=== PATIENT | female | born 1990 | race Caucasian/White ===

== ENCOUNTER 2017-03-31 07:58 | Inpatient (IN) | payer OTHER ==
[2017-04-02] MEDS ORDERED: SERT50TA PO (09:39)
[2017-04-02] MEDS ORDERED: GABA-534 PO (09:39)
[2017-04-02] MEDS ORDERED: BUSP15TA3 PO (09:39)
[2017-04-02] MEDS ORDERED: CLON0.1T PO (09:39)
== END 2017-04-01 00:24 | disposition left against medical advice (07) | DRG 894 ==
LOC: SRC 23:25
PROVIDERS: ADMIT Internal Medicine; ATTEND Internal Medicine
DX: F19.239 Other psychoactive substance dependence with withdrawal, unspecified (principal); Z75.3 Unavailability and inaccessibility of health-care facilities

== ENCOUNTER 2017-03-31 19:35 | Emergency (ER) | payer OTHER ==
[~2017-03-31] VITALS: Ht 165.1 cm; Wt 59.0 kg
--- NOTE | 2017-03-31 19:57 | NUR ---
DR. WALKER AT BEDSIDE FOR EVAL.
[2017-03-31 20:33] LABS: BASOPHILS # (AUTO) 0.1 K/uL (0.0-8.0); BASOPHILS % (AUTO) 0.5 % (0.0-2.0); EOSINOPHILS # (AUTO) 0.5 K/uL (0.0-0.7); EOSINOPHILS % (AUTO) 5.2 % (0.0-7.0); HEMATOCRIT 37.7 % (37-47); HEMOGLOBIN 12.7 G/DL (12.0-16.0); LYMPHOCYTES # (AUTO) 3.7 K/UL (0.8-4.8); LYMPHOCYTES % (AUTO) 36.5 % (20.5-51.5); MEAN CORPUSCULAR HEMOGLOBIN 29.9 UUG (27.0-31.0); MEAN CORPUSCULAR HGB CONC 34 g/dL (32.0-37.0); MEAN CORPUSCULAR VOLUME 88.9 FL (81.0-99.0); MONOCYTES # (AUTO) 0.5 K/UL (0.1-1.30); MONOCYTES % (AUTO) 5.2 % (0.0-11.0); NEUTROPHILS # (AUTO) 5.3 K/UL (1.8-8.9); NEUTROPHILS % (AUTO) 52.6 % (38.5-71.5); PLATELET COUNT (AUTO) 254 K/UL (150-450); RED BLOOD CELL COUNT(AUTO) 4.24 MIL/UL (4.2-5.4); WHITE BLOOD COUNT (AUTO) 10.1 K/UL (4.0-11.2)
[2017-03-31 20:38] LABS: CARBON DIOXIDE 28 mmol/L (21-32); CHLORIDE 101 mmol/L (98-107); CREATININE 0.8 mg/dL (0.6-1.3); GLUCOSE 96 mg/dL (74-106); POTASSIUM 3.8 mmol/L (3.5-5.1); UREA NITROGEN, BLOOD 10 mg/dL (7-18)
[2017-03-31 20:44] LABS: ALANINE AMINOTRANSFERASE 23 U/L (14-59); ALKALINE PHOSPHATASE 42 U/L (50-136); ASPARTATE AMINOTRANSFERASE 16 U/L (15-37); BILIRUBIN,DIRECT 0.1 mg/dL (0.0-0.2); BILIRUBIN,TOTAL 0.3 mg/dL (0.2-1.0); TOTAL PROTEIN, SERUM 7.4 g/dL (6.4-8.2)
[2017-03-31 20:46] LABS: ACETAMINOPHEN < 2.0 ug/mL (10-30)
[2017-03-31 20:58] LABS: ETHANOL 280 MG/DL (0-0)
--- NOTE | 2017-03-31 22:30 | NUR ---
PATIENT IN ROOM AWAKE. AT TIMES ARUGING WITH [facility] STAFF AND ER STAFF MEMBER. PATIENT WAS OFFERED MEAL BUT PATIENT REFUSED. NO DISTRESS NOTED
--- NOTE | 2017-03-31 22:40 | NUR ---
СЕРГЕЙ STAFF MEMBER IN ROOM SPEAKING WITH PATIENT
[2017-03-31 22:54] VITALS: BP 120/75
== END 2017-03-31 23:20 | disposition home or self-care (01) ==
LOC: ER 19:37
DX: F19.10 Other psychoactive substance abuse, uncomplicated (principal); F10.129 Alcohol abuse with intoxication, unspecified
CPT/HCPCS: 36415; 70030-TC; 84703; 85025; 93005; A4663; G0480; G0480-TC

== ENCOUNTER 2017-04-01 02:24 | Inpatient (IN) | payer OTHER ==
[~2017-04-01] VITALS: Ht 157.5 cm; Wt 59.0 kg
--- NOTE | 2017-04-01 02:36 | NUR ---
PATIENT BIB [employer] IN [facility], PLACED ON 5150 FOR SI. PT WAS SEEN IN ER AROUND 1999 ON 03/31/17, WAS MEDICALLY CLEARED. PATIENT CAME INITALLY TO HOSPITAL SEEKING CARE AT [facility]. AFTER PATIENT WAS MEDICALLY CLEARED HAND OFF WAS GIVEN TO [facility] INTAKE. AT SOME POINT AT [facility], PATIENT WAS REFUSING CARE AND LEAVING THE HOSPITAL, ATTEMPTING TO RUN OUT ONTO THE STREETS. [employer] WAS CALLED, AND PATIENT WAS PLACED ON HOLD BY [employer]. PATIENT VSS UPON ARRIVAL TO ER, SLURRED SPEECH NOTED. NO ACUTE DISTRESS WILL MONITOR.
--- NOTE | 2017-04-01 02:40 | NUR ---
PATIENT PLACED ON 5150 HOLD BY [employer] ON 04/01/17 @ 0229. ORIGINAL HOLD IN CHART.
--- NOTE | 2017-04-01 02:52 | NUR ---
PATIENT ASLEEP AT THIS TIME, BREATHING IS EVEN AND UNLABORED.
[2017-04-01 03:50] LABS: ALANINE AMINOTRANSFERASE 23 U/L (14-59); ALKALINE PHOSPHATASE 43 U/L (50-136); ASPARTATE AMINOTRANSFERASE 18 U/L (15-37); BILIRUBIN,DIRECT 0.1 mg/dL (0.0-0.2); BILIRUBIN,TOTAL 0.2 mg/dL (0.2-1.0); CARBON DIOXIDE 31 mmol/L (21-32); CHLORIDE 101 mmol/L (98-107); CREATININE 0.8 mg/dL (0.6-1.3); GLUCOSE 88 mg/dL (74-106); POTASSIUM 3.9 mmol/L (3.5-5.1); TOTAL PROTEIN, SERUM 7.4 g/dL (6.4-8.2); UREA NITROGEN, BLOOD 10 mg/dL (7-18)
[2017-04-01 03:51] LABS: ACETAMINOPHEN < 2.0 ug/mL (10-30)
[2017-04-01 03:56] LABS: BASOPHILS % (AUTO) 0.4 % (0.0-2.0); EOSINOPHILS # (AUTO) 0.2 K/uL (0.0-0.7); EOSINOPHILS % (AUTO) 2.1 % (0.0-7.0); HEMATOCRIT 38.5 % (37-47); HEMOGLOBIN 12.9 G/DL (12.0-16.0); LYMPHOCYTES # (AUTO) 2.4 K/UL (0.8-4.8); LYMPHOCYTES % (AUTO) 28.6 % (20.5-51.5); MEAN CORPUSCULAR HEMOGLOBIN 29.6 UUG (27.0-31.0); MEAN CORPUSCULAR HGB CONC 34 g/dL (32.0-37.0); MEAN CORPUSCULAR VOLUME 88.5 FL (81.0-99.0); MONOCYTES # (AUTO) 0.5 K/UL (0.1-1.30); MONOCYTES % (AUTO) 5.4 % (0.0-11.0); NEUTROPHILS # (AUTO) 5.4 K/UL (1.8-8.9); NEUTROPHILS % (AUTO) 63.5 % (38.5-71.5); PLATELET COUNT (AUTO) 258 K/UL (150-450); RED BLOOD CELL COUNT(AUTO) 4.35 MIL/UL (4.2-5.4); WHITE BLOOD COUNT (AUTO) 8.5 K/UL (4.0-11.2)
[2017-04-01 03:57] LABS: ETHANOL 202 MG/DL (0-0)
--- NOTE | 2017-04-01 05:15 | NUR ---
ASSISTED PATIENT TO BATHROOM, URINE SAMPLE OBTAINED. AMBULATES WITH UNSTEADY GAIT. REMAINS WITH SLURRED SPEECH AT THIS TIME.
[2017-04-01 05:52] LABS: *BILIRUBIN,URIN NEGATIVE (NEGATIVE); *BLOOD, URINE NEGATIVE (NEGATIVE); *CLARITY,URINE CLEAR (CLEAR); *COLOR,URINE STRAW (YELLOW); *KETONES,URINE NEGATIVE (NEGATIVE); *PROTEIN,URINE NEGATIVE (NEGATIVE); *UROBILINOGEN,URINE 0.2 E.U./dl (NORMAL); LEUKOCYTE ESTERASE ,URINE NEGATIVE (NEGATIVE); NITRITE, URINE NEGATIVE (NEGATIVE); UGLUCOSE NEGATIVE (NEGATIVE)
[2017-04-01 06:02] LABS: BACTERIA,URINE FEW /HPF (NONE SEEN); RBC,URINE 0-3 /HPF (0-3); SQUAMOUS EPITHELIAL CELL,UR FEW /HPF (NONE SEEN); WBC,URINE 0-3 /HPF (0-3)
[2017-04-01 06:17] LABS: *AMPHETAMINE, URINE NEGATIVE (NEGATIVE); *BARBITURATE, URINE NEGATIVE (NEGATIVE); *CANNABINOID, URINE NEGATIVE (NEGATIVE); *COCCAINE, URINE NEGATIVE (NEGATIVE); *OPIATE, URINE NEGATIVE (NEGATIVE); *PHENCYCLIDINE SCREEN,URINE NEGATIVE (NEGATIVE)
--- NOTE | 2017-04-01 06:50 | NUR ---
PATIENT ASLEEP AT THIS TIME, 1:1 SITTER AT BEDSIDE.
--- NOTE | 2017-04-01 07:04 | NUR ---
SHELLI ALBERTS NOTIFIED FOR EVALUATION OF PATIENT.
--- NOTE | 2017-04-01 07:05 | NUR ---
ETA OF SHELLI ALBERTS IS 1HR
--- NOTE | 2017-04-01 07:30 | NUR ---
Report received.Pt remains asleep.Sitter at bedside.Appears comfortable.No s/s of distress.VS WNL. Will continue to monitor.
--- NOTE | 2017-04-01 08:30 | NUR ---
Seen,examined by Oriln Lewis,crisis evaluater.
--- NOTE | 2017-04-01 08:31 | NUR ---
Pt is going to be discharge to [facility].Report given to [facility] coordinator.
--- NOTE | 2017-04-01 09:40 | NUR ---
Admission Note VS: BP: 112/82 HR:92, SpO2: 99% RA, RR: 16, Temp: 98.6 Pain:6/10 (body aches) Height:5'2" Weight: 132 LB Allergies: MAMI Pt is a 26 y/o female admitted to [facility] on 04/01/17 at 0940. Pt is under the care of Dr. Wilson for alcohol dependence. PT also reports occasional use of Valium and Librium. Pt denies suicidal and homicidal ideations at this time. Pt denies Chest Pain and SOB. Pt did not bring any medications with her and denies taking any medications at home. PT reports being homeless at this time. Upon assessment pt's skin pt presents with multiple scrapes on her knees and knuckles. CIWA 20 upon admission, has been notified and pt received Valium 20mg and Motrin 600mg for body aches. NKA, A/Ox4 and able to answer questions necessary for the admission process. Pt is Full Code. VS WNL, Regular Diet. Pt reports Hx of anxiety, depression and Bipolar disorder. Denies any Hx of family substance abuse. Pt reports having multiple seizures in the past related to withdrawals most recent being in December of 2015. Pt denies having a PCP. Breathing is even and unlabored, SpO2 is 99% on RA. Pt ambulates with unsteady gait, pt is on a 1:1 for safety reasons until farther evaluation. Pt reports regular daily BM. LBM on 04/01/17. Pt reports smoking 1/[address] Wilson has been notified, pt has been placed on a 5 day Valium taper set to begin tonight, 2100. Urine has been collected for UDS. All needs have been met. Pt has been oriented to the room and the unit. All safety measures in place per hospital policy. Bed in lowest position, side rails up x2 and padded, call-light within reach. Will continue to monitor. Substance Abuse: Alcohol: 2-3 bottles of wine, 6 pack of beer and several shots of vodka daily. Pt reports drink 20 bottles of hand change control analyst during the last 4 days. Last drink: 03/31/17, pt reports drinking at least 2 bottles of wine prior to being admitted to the ER.
[2017-04-01 10:00] VITALS: BP 112/73
[2017-04-01] MEDS ORDERED: DICYCLOMINE HCL 20 MG TABLET PO PRN (10:30)
[2017-04-01] MEDS ORDERED: MAGNESIUM HYDROXIDE 30 ML LIQUID UDC PO PRN (10:30)
[2017-04-01] MEDS ORDERED: LORAZEPAM 2 MG/1 ML VIAL IM PRN (10:30)
[2017-04-01] MEDS ORDERED: LORAZEPAM 1 MG TABLET PO PRN ×2 (10:30)
[2017-04-01] MEDS ORDERED: MIRALAX 17 GM POWD.PACK PO PRN (10:30)
[2017-04-01] MEDS ORDERED: LOPERAMIDE HCL 2 MG CAPSULE PO PRN ×2 (10:30)
[2017-04-01] MEDS ORDERED: diphenhydrAMINE 50 MG CAPSULE PO PRN (10:30)
[2017-04-01] MEDS ORDERED: MAG HYDROX/AL HYDROX/SIMETH 30 ML LIQUID UDC PO PRN (10:30)
[2017-04-01 10:42] LABS: *URINE HCG, QUAL NEGATIVE (NEGATIVE)
[2017-04-01] MEDS ORDERED: THIAMINE HCL 200 MG/2 ML VIAL IM ONE ×2 (11:00→14:00)
[2017-04-01 12:00] VITALS: BP 125/65
[2017-04-01] MEDS ORDERED: DIAZEPAM 10 MG TABLET PO PRN ×2 (13:00)
[2017-04-01] MEDS ORDERED: DIAZEPAM 5 MG TABLET PO PRN (13:00)
[2017-04-01] MEDS: GABAPENTIN 300 MG CAPSULE PO SCH (14:34)
[2017-04-01] MEDS: IBUPROFEN 600 MG TABLET PO PRN (15:25)
--- NOTE | 2017-04-01 15:25 | NUR ---
PRN Medications Administered PRN Valium and Motrin for CIWA 20 and Pain of 6/10. Will re-asses. HAS BEEN NOTIFIED
--- NOTE | 2017-04-01 15:55 | NUR ---
Medication Re-assessment CIWA 12 upon re-assessment. Pt reports Pain of 3/10 at this time. Medications were effective .
[2017-04-01 16:00] VITALS: BP 128/78
--- NOTE | 2017-04-01 19:22 | NUR ---
End of Shift Endorsed PT to nightshift nurse. Pt is a 26 y/o female admitted to [facility] on 04/01/17 at 0940. Pt is under the care of Dr. Wilson for alcohol dependence. PT also reports occasional use of Valium and Librium. Pt denies suicidal and homicidal ideations at this time. Pt denies Chest Pain and SOB. Pt did not bring any medications with her and denies taking any medications at home. PT reports being homeless at this time. Upon assessment pt's skin pt presents with multiple scrapes on her knees and knuckles. CIWA 20 upon admission, has been notified and pt received Valium 20mg and Motrin 600mg for body aches. NKA, A/Ox4 and able to answer questions necessary for the admission process. Pt is Full Code. VS WNL, Regular Diet. Pt reports Hx of anxiety, depression and Bipolar disorder. Denies any Hx of family substance abuse. Pt reports having multiple seizures in the past related to withdrawals most recent being in December of 2015. Pt denies having a PCP. Breathing is even and unlabored, SpO2 is 99% on RA. Pt ambulates with unsteady gait, pt is on a 1:1 for safety reasons until farther evaluation. Pt reports regular daily BM. LBM on 04/01/17. Pt reports smoking 1/[address] Wilson has been notified, pt has been placed on a 5 day Valium taper set to begin tonight, 2100. Urine has been collected for UDS. All needs have been met. Pt has been oriented to the room and the unit. All safety measures in place per hospital policy. Bed in lowest position, side rails up x2 and padded, call-light within reach. Will continue to monitor.
[2017-04-01 20:00] VITALS: BP 108/72
--- NOTE | 2017-04-01 20:00 | NUR ---
Start of Shift Pt is a 26 year old female admitted for ETOH dependence, placed on 5 day Valium taper. Pt reports drinking 2-3 bottles of wine and 6 pack of beer and several shots of vodka daily. Pt reported consuming 20 bottles of hand clearance cutter during the past 4 days. PMH: Anxiety, Depression and Bipolar D/O. NKA, fall/seizure precautions and full code. At time of assessment, pt reports feeling anxious/irritable and uneasy, reports feeling aches and chills throughout body, fatigue, sensitivity to light, nausea, skin clammy, denies SI. Medications due, Sitter at bedside for safety. Safety measures in place, call light within reach side rails up x2, bed locked and in low position. Will continue to monitor.
[2017-04-01] MEDS: DIAZEPAM 10 MG TABLET PO SCH ×2 (20:10→23:23)
[2017-04-01] MEDS ORDERED: GABAPENTIN 300 MG CAPSULE PO SCH (21:00)
[2017-04-01] MEDS: METHOCARBAMOL 750 MG TABLET PO PRN (21:14)
--- NOTE | 2017-04-01 21:14 | NUR ---
PRN Administration Pt reports body aches, rated 10/10. Robaxin 750mg PRN administered. Safety measures in place, will continue to monitor.
--- NOTE | 2017-04-01 22:24 | NUR ---
PRN Reassessment Pt rates body aches, 5/10. Needs met, safety measures in place, sitter at bedside, will continue to monitor.
[2017-04-02] VITALS: BP 111/71
[2017-04-02 04:00] VITALS: BP 106/70
--- NOTE | 2017-04-02 04:00 | NUR ---
Vital Signs BP 106/70, pulse 76, resp 14, SpO2 97% room air, temp 97.8 CIWA deferred d/t pt sleeping - to assess while pt is awake as ordered. Safety measures in place. Will continue to monitor.
--- NOTE | 2017-04-02 07:00 | NUR ---
End of Shift Pt is a 26 year old female admitted for ETOH dependence, placed on 5 day Valium taper. Pt reports drinking 2-3 bottles of wine and 6 pack of beer and several shots of vodka daily. Pt reported consuming 20 bottles of hand manager call during the past 4 days. PMH: Anxiety, Depression and Bipolar D/O. NKA, fall/seizure precautions and full code. During shift, pt reported feeling anxious/irritable and uneasy, reported feeling aches and chills throughout body, fatigue, sensitivity to light, nausea, skin clammy, denies SI scheduled taper medications administered, along with Robaxin 750mg PRN, CIWA 13 at 0000. Pt remains on 1:1 for safety. Pt slept for 6 hours, intake of 1547 ml PO, voids x1 and stool x0. Safety measures in place, call light within reach, side rails up x2, bed locked and in low position. Endorsed to day shift nurse.
--- NOTE | 2017-04-02 07:45 | NUR ---
START OF SHIFT Rcvd endorsement from ongoing nurse, client is in room, a/o x4, she presents with irritable mood and flat affect. She reports restless legs and stated "I feel horrible, I am sweating, my anxiety is over the roof." Client denies any N/V/D or SI/HI. Encouraged client to increase fluid intake to facilitate detox. Encourage client to attend group therapy for skills to maintain sobriety. Client is on a 1:1 for safety precautions. Client is a 26 yo female admitted for withdrawal from alcohol. She is on last of 5 day Diazepam taper, first dose today @ 0900. She reports NKA, full code, regular diet. Bilateral knees with superficial abrasions, no tx ordered, client denies any discomfort at site. PRN Robaxin for muscle pain, noted effective. Client slept 6 hrs. Client reports history of withdrawal-induced seizure. She is on seizure precautions. Call light within reach. Side rails up x2/padded, bed locked and in low position.
[2017-04-02 08:00] VITALS: BP 119/87
[2017-04-02 08:08] LABS: HEPATITIS B SURFACE AG Negative (Negative)
[2017-04-02] MEDS: DIAZEPAM 10 MG TABLET PO SCH ×4 (08:12→20:15)
[2017-04-02] MEDS: THIAMINE HCL 100 MG TABLET PO SCH (08:12)
[2017-04-02] MEDS: FOLIC ACID 1 MG TABLET PO SCH (08:12)
[2017-04-02] MEDS: ONDANSETRON ODT 4 MG TAB.RAPDIS SL PRN (08:13)
[2017-04-02] MEDS: DOCUSATE SODIUM 250 MG CAPSULE PO SCH (08:13)
[2017-04-02] MEDS: METHOCARBAMOL 750 MG TABLET PO PRN (08:13)
[2017-04-02] MEDS: MULTIVITAMINS,THERAPEUTIC TABLET PO SCH (08:13)
[2017-04-02] MEDS: GABAPENTIN 300 MG CAPSULE PO SCH ×3 (08:13→16:10)
--- NOTE | 2017-04-02 08:13 | NUR ---
PRN Zofran 4mg, Bentyl 20mg, Robaxin 750mg Client with intermittent nausea, no emesis, abdominal cramps and generalized muscle pain. Above medications administered PO. Will continue to monitor. Call light within reach. Sitter at bedside promoting safety.
--- NOTE | 2017-04-02 08:16 | NUR ---
TB test administered to L forearm. Client tolerated well.
[2017-04-02] MEDS ORDERED: TUBERCULIN,PURIF.PROT.DERIV. 5 TU/0.1 ML TEST ID ONE (09:00)
--- NOTE | 2017-04-02 09:13 | NUR ---
Reassessment PRN Zofran 4mg, Bentyl 20mg, Robaxin 750mg Client reports relief from nausea and abdominal cramps, but not from generalized muscle pain, which continues to be an 8/10. Client declined Motrin or Tylenol at this time, she wants to go to the patio and smoke a cigarette. Will continue to monitor.
--- NOTE | 2017-04-02 09:20 | NUR ---
Client reports following home meds Zolof 100mg daily Gabapentin 900mg TID Clonidine 0.1mg Q6HPRN Buspar [address] T[address] Wilson notified.
[2017-04-02] MEDS ORDERED: BUSP15TA3 PO (09:39)
[2017-04-02] MEDS ORDERED: GABA-534 PO (09:39)
[2017-04-02] MEDS ORDERED: CLON0.1T PO (09:39)
[2017-04-02] MEDS ORDERED: SERT50TA PO (09:39)
--- NOTE | 2017-04-02 10:13 | NUR ---
PRN Valium 10mg PO administered, client with anxiety, irritability, flushed face, dilated pupils, tremors, sweating, chills, CIWA 10. Dr. Wilson notified. Will continue to monitor. Call light within reach.
--- NOTE | 2017-04-02 11:13 | NUR ---
Reassessment PRN Valium 10mg PO administered, client reports feeling a little bit better, she appears less anxious and irritable, flushed face, dilated pupils, and fine tremors continue. CIWA 7. Will continue to monitor. Call light within reach.
[2017-04-02] MEDS: IBUPROFEN 600 MG TABLET PO PRN ×2 (12:24→20:15)
--- NOTE | 2017-04-02 12:24 | NUR ---
PRN Motrin 600mg PO administered for generalized body aches 02/14. Call light within reach. Will continue to monitor.
[2017-04-02 12:27] VITALS: BP 129/93
[2017-04-02] MEDS ORDERED: Medication Not On Formulary EA (Buspirone Hcl 15 MG) PO SCH (13:00)
[2017-04-02] MEDS: SERTRALINE HCL 50 MG TABLET PO SCH (13:16)
[2017-04-02] MEDS: busPIRone 10 MG TABLET PO SCH ×2 (13:16→16:10)
--- NOTE | 2017-04-02 13:24 | NUR ---
Reassessment PRN Motrin 600mg, client reports no relief PO from generalized body aches 02/14. Call light within reach. Will continue to monitor.
[2017-04-02] MEDS ORDERED: CLONIDINE HCL 0.1 MG TABLET PO ONE (13:45)
[2017-04-02] MEDS: ACETAMINOPHEN 325 MG TABLET PO PRN (13:49)
--- NOTE | 2017-04-02 13:49 | NUR ---
PRN Tylenol 650mg, One time dose Clonidine 0.1mg Client with generalized body aches 01/15, she appears anxious, irritable and diaphoretic, above medications administered PO. Call light within reach. Will continue to monitor.
--- NOTE | 2017-04-02 14:06 | NUR ---
Nursing notes, client c/ intermittent nausea, she declines PRN Zofran medication at this time, will continue to monitor. Gaby darcy and saltine crackers at bedside.
--- NOTE | 2017-04-02 14:46 | NUR ---
MD Notification RN spoke with Dr. Wilson, Client reports feeling "wired" with the Valium taper and would like the doctor to possibly change it to Librium and something else. She stated "I was drinking mouth wash and hand brush loader and handle attacher, maybe 3 to 4 bottles of 8oz daily. 3 bottles of wine daily, 750mL of whiskey which lasted two days and 750mL of Gin daily at night, for the past [address] Wilson to continue with Valium taper and to continue monitoring client.
--- NOTE | 2017-04-02 14:49 | NUR ---
Reassessment PRN Tylenol 650mg, One time dose Clonidine 0.1mg Client states no relief from generalized body aches 01/15. She appears less anxious, she is lying in bed, watching TV. Call light within reach. Will continue to monitor.
[2017-04-02] MEDS ORDERED: DIAZEPAM 10 MG TABLET PO ONE (16:00)
--- NOTE | 2017-04-02 16:00 | NUR ---
Dr. Wilson gave verbal order of one time dose Valium 20mg now and to cancel 1700 Valium 10mg. Clonidine 0.1mg Q6H PRN for anxiety, irritability, diaphoresis, chills, hold for BP < 90/60.
[2017-04-02 16:14] VITALS: BP 126/82
--- NOTE | 2017-04-02 17:00 | NUR ---
PRE-ASSESSMENT: Pre-Assessment done at intake office, client is A/O x4, he presents with flat affect, anxious mood. Flushed face and dilated pupils noted. T 98.2, RR 18, BP 127/70, HR 96, spO2 @ 97% on RA, Pain 0/10. He is fully ambulatory. He denies any allergies to medication or food, but he reports seasonal allergies. He denies any withdrawal-induced seizure. PMH: insomnia, Asthma, Hep C. Medications taken at home Seroquel 200mg HS PO Ventolin PRN. Substance history Heroin 2gm IV daily for a month, last used morning prior to admission 1/4gm. Prescribed Klonopin 2mg BID daily, for the past 4 years, twice a week he takes 8 mg, last used 04/01/17. Xanax 8mg 4 X week for a month. Methamphetamine 1gm IV 4 X week for a month, last used 04/01/17. Marijuana an eight smoked daily for the past 3 years. Cocaine 1mg IV, last used a couple of months ago. Longest period of sobriety maybe a month, but he can not remember. He does not have a PCP, client gives verbal consent for HIV and declines Pneumonia vaccine at this time, stating maybe he already got it somewhere else this year. Protocol for vitals, urine drug screen, blood drawn and home medication discuss, client verbalizes understanding. Addendum: 04/02/17 at 1733 by DESHAUN MCFARLANE RN wrong client
--- NOTE | 2017-04-02 19:15 | NUR ---
END OF SHIFT Endorsed to incoming nurse, client is a 26 yo female admitted for withdrawal from alcohol. She is on 5 day Diazepam taper, tolerating well. Last CIWA 12 @ 1600. She reports NKA, full code, regular diet. PRN Bentyl 20mg, Robaxin 70mg and Zofran 4mg for stomach cramps, muscle pain and nausea, Valium 10mg CIWA 10,after an hr, CIWA 7, Motrin and Tylenol for generalized body aches, not effective. Client compliant with medication regime, but not with group therapy. Adequate PO fluid intake 2190mL, void x 5. Client reports history of withdrawal-induced seizure. She is on seizure precautions. Call light within reach. Side rails up x2/padded, bed locked and in low position.
[2017-04-02 20:00] VITALS: BP 138/98
[2017-04-02] MEDS: CLONIDINE HCL 0.1 MG TABLET PO PRN (20:15)
[2017-04-02] MEDS: ONDANSETRON 4 MG/2 ML VIAL IM PRN (20:16)
--- NOTE | 2017-04-02 20:16 | NUR ---
PRN Administration Patient presented with symptoms of sweating, chills, anxiety, slight agitation, 6/10 headache and generalized body aches. Patient also vomited moderate amount of stomach contents. PRN Zofran IM, Motrin & Clonidine administered as ordered. Vitals WNL. Will reassess in 1 hour. Will continue to monitor patient.
--- NOTE | 2017-04-02 21:16 | NUR ---
PRN Reassessment Patient verbalized improved nausea and decrease in anxiety. Patient appears more calm and comfortable at this time. No facial grimacing noted. Pateint continues on a 1:1 supervision. Will continue to monitor patient.
[2017-04-03] VITALS: BP 108/61
[2017-04-03 04:00] VITALS: BP 95/59
--- NOTE | 2017-04-03 06:58 | NUR ---
End of Shift Note: Patient is a 26 y/o female admitted on 04/01/17 for ETOH dependence. Patient on a Valium taper and tolerating well. Patient continues on a 1:1 supervision for safety. Patient remained stable and vitals remained WNL. Last CIWA 7 at 2200. Patient was given PRN Clonidine & Motrin @ 2016 with help. Patient also had 2 episode of vomiting last night and was given PRN Zofran IM and was effective. Patient still asleep at this time and appears comfortable. No s/s of distress noted. Pt slept for a total of 7 hours. Pt voided 2x with no bowel movement. All needs attended & met. Safety precautions are in place. Will continue to monitor patient.
--- NOTE | 2017-04-03 07:45 | NUR ---
START OF SHIFT NOTE Received report from night nurse, 26 year old female admitted for ETOH dependence. Pt cont on 5 day Valium taper. Pt reports drinking 2-3 bottles of wine and 6 pack of beer and several shots of vodka daily. Pt reported consuming 20 bottles of hand wire communications engineer during the past 4 days. Per endorsement pt received PRN medications effective per night nurse, last CIWA-7, slept for 7 hours. Pt cont on 1:1 for safety. Patient received in room, alert and oriented x4, educated regarding plan of care for the day and medication regimen with good verbal understanding. Will continue to monitor.
[2017-04-03 08:00] VITALS: BP 109/73
[2017-04-03] MEDS: MULTIVITAMINS,THERAPEUTIC TABLET PO SCH (08:18)
[2017-04-03] MEDS: FOLIC ACID 1 MG TABLET PO SCH (08:18)
[2017-04-03] MEDS: GABAPENTIN 300 MG CAPSULE PO SCH ×3 (08:18→16:48)
[2017-04-03] MEDS: THIAMINE HCL 100 MG TABLET PO SCH (08:19)
[2017-04-03] MEDS: SERTRALINE HCL 50 MG TABLET PO SCH (08:19)
[2017-04-03] MEDS: DOCUSATE SODIUM 250 MG CAPSULE PO SCH (08:19)
[2017-04-03] MEDS: DIAZEPAM 10 MG TABLET PO SCH ×3 (08:19→19:23)
[2017-04-03] MEDS: busPIRone 10 MG TABLET PO SCH ×3 (08:19→16:49)
[2017-04-03] MEDS: CLONIDINE HCL 0.1 MG TABLET PO PRN ×2 (08:27→15:37)
--- NOTE | 2017-04-03 08:27 | NUR ---
PRN CLONIDINE Pt c/o of anxiety, sweats, chills. PRN Clonidine administered as ordered. Will cont to monitor and reassess.
--- NOTE | 2017-04-03 09:27 | NUR ---
REASSESSMENT Upon reassessment pt reported medication effective, anxiety chills and sweats subside.
[2017-04-03] MEDS: ONDANSETRON ODT 4 MG TAB.RAPDIS SL PRN (11:25)
--- NOTE | 2017-04-03 11:25 | NUR ---
PRN ZOFRAN Pt reported nauseated and x1 emesis. Administered PRN Zofran 4mg SL as ordered. Will cont to monitor and reassess.
--- NOTE | 2017-04-03 11:55 | NUR ---
SHARMAINEFRAN REASSESSMENT Upon reassessment pt reported medication nausea improved and no emesis present.
[2017-04-03 12:00] VITALS: BP 115/80
[2017-04-03] MEDS: METHOCARBAMOL 750 MG TABLET PO PRN (12:01)
--- NOTE | 2017-04-03 12:01 | NUR ---
PRN ROBAXIN Pt was c/o muscle cramps, PRN Robaxin administered as ordered. Will cont to monitor and reassess.
[2017-04-03] MEDS: IBUPROFEN 600 MG TABLET PO PRN (12:08)
--- NOTE | 2017-04-03 12:08 | NUR ---
PRN MOTRIN Pt c/o of headache 11/15, administered PRN Motrin 600mg Po as ordered. Will cont to monitor and reassess.
--- NOTE | 2017-04-03 13:01 | NUR ---
REASSESSMENT Pt stated medication effective.
--- NOTE | 2017-04-03 13:08 | NUR ---
REASSESSMENT Pt reported medication effective headache decreased to 1/10. Will cont to monitor.
[2017-04-03 16:00] VITALS: BP 116/77
[2017-04-03] MEDS: KETOROLAC TROMETHAMINE 30 MG INJ IM PRN (16:14)
--- NOTE | 2017-04-03 16:14 | NUR ---
PRN TORADOL Pt c/o of general body pain 03/17. Pt provided with non pharmacological intervention with no relief. Dr. Wilson notified get new order for Toradol 30mg IM d2inbur. unable to enter the order. Primary nurse taken verbal order. Administered Toradol Im 30mg as ordered. Will cont to monitor and reassess.
--- NOTE | 2017-04-03 16:40 | NUR ---
TORADOL REASSESSMENT Pt reported medication effective to controlling her pain decreased to 4/10.
--- NOTE | 2017-04-03 19:06 | NUR ---
END OF SHIFT NOTE Pt cont with 5 day Valium taper tolerating well. Pt presented with anxiety, chills, sweats, nausea vomiting, muscle cramps, general body aches, Pt medicated with PRN Toradol IM, Zofran, Motrin, Clonidinex2, Robaxin. Pt cont on 1:1 for safety. Last CIWA-8. Encouraged Po fluids as tolerated. Pt remained compliant with plan of care. All safety measures in place, Call light within reach. P endorsed to night nurse in stable condition.
--- NOTE | 2017-04-03 19:45 | NUR ---
Start of Shift Note Patient is a 26 year old female admitted to [facility] on 04-01-17 for alcohol dependence. She has history of drinking 2-3 bottles of wine, a 6 pack of beer, as well as 20 bottles of hand die trouble shooter in last 4 days. PAtient on 1 for safety. She has NKA is a full code and on a regular diet. She has pasy psychiatric history of Bipolar Disorder, anxiety and depresseion. She denies SI or HI. She has a seizure history with last reported seizure in December 2015. She continues on a 5 day Valium taper which she reports tolerating with great difficulty. Patient was ssn by MD at change of shift due to her increased withdrawal symptoms and feeling of coming out of her skin. MD requested we give her 2100 dose of valium at that time Valium, 10 mg PO given at 1923. Pt presented with anxiety, chills, sweats, gross tremors, nausea, reports of vomiting, muscle cramps, general body aches, Pt medicated with PRN Toradol IM, Zofran, Motrin, Clonidinex2, Robaxin.on day shift. Last CI-. Encouraged patient to increase PO fluids as tolerated. Pt remained compliant with plan of care. All safety measures in place, Call light within reach. endorsement received from AM nurse.
[2017-04-03 20:00] VITALS: BP 113/84
[2017-04-03] MEDS ORDERED: DIAZEPAM 5 MG TABLET PO PRN (20:00)
[2017-04-03] MEDS ORDERED: DIAZEPAM 10 MG TABLET PO PRN ×2 (20:00)
[2017-04-03] MEDS ORDERED: BACLOFEN 20 MG TABLET ONE (20:39)
[2017-04-03] MEDS ORDERED: CLONIDINE HCL 0.1 MG TABLET ONE (20:39)
[2017-04-03] MEDS: BACLOFEN 20 MG TABLET PO SCH (20:50)
[2017-04-03] MEDS: HYDROXYZINE PAMOATE 25 MG CAPSULE PO SCH (20:50)
--- NOTE | 2017-04-03 20:50 | NUR ---
PRN medication Patient with complaints of anxiety a 10 out of 10, as well as severe body aches all over body of a 10 out of 10. Patient given Baclofen 20 mg PO at 2049 with effect pending Patient given Vistaril 50 mg PO as well as clonidine 0.1 mg PO for anxiety at 2049 with effect pending.
[2017-04-03] MEDS: CLONIDINE HCL 0.1 MG TABLET PO SCH (20:51)
--- NOTE | 2017-04-03 21:50 | NUR ---
Reassessment of patient Patient reassessed one hour after PRN medications PAtient reports decrease in anxiety to a 5 out of 10 at present time but states "I know it will get worse" asking questions regarding all meds available to her. Patient reports body aches improved to a 4 at present time. Patient remains on 1:1 for sdafety. Denies any SI or HI States she does not want to . (states she knows the hand auditor/quality and continued alcohol will kill her)
--- NOTE | 2017-04-04 | NUR ---
VS refused CIWA deferred Patient resting in bed with eyes closed. Respirations 16. Breathing even and unlabored. Refused VS due to sleep. Continues with 1:1 by side. CIWA deferred for sleep.
[2017-04-04] MEDS: HYDROXYZINE PAMOATE 25 MG CAPSULE PO SCH ×2 (00:15→04:15)
[2017-04-04] MEDS: CLONIDINE HCL 0.1 MG TABLET PO SCH ×5 (02:15→21:10)
--- NOTE | 2017-04-04 04:00 | NUR ---
CIWA deferred Patient refused vital signs at 0400 due to sleep. Respirations 16, breathing even and unlabored. CIWA deferred for sleep
--- NOTE | 2017-04-04 06:51 | NUR ---
End of Shift Patient is a 26 year old female admitted on 04-01-17 for Alcohol dependence. She admitted to drinking 2-3 bottles of wine, a 6 pack of beer daily as well as 20 bottles of hand middle or intermediate school principal in last 4 days. Patient placed on 1:1 for safety. Patient with past psychiatric history of Anxiety, Bipolar Disorder, and depression. Patient appears sullen, but denies SI or HI. She reports feelings of self loathing and low self esteem related to her relapse as well as her spiral into addiction. Patient has Past history of seizures with last noted in December 2015. She is a full code, on a vegetarian diet, and has NKA. She is currently on a 5 day valium taper. Upon start of shift patient was experiencing severe withdrawal symptoms, anxiety and considering discharge AMA. Patient received counseling from unit staff as well as MD and Nurse. She reported not wanting to as her reason for staying. Patient was medicated with her 9pm valium dose at 1923 per MD order. CIWA 14. Patient also received Vistaril 50 mg at 2049 for restlessness and anxiety, Clonidine 0.1mg PO PRN at for anxiety and restlessness, Patient slept a total of 6 hours. Input: 1210 ml output: 2 void no BM. Safety measures in place, call light within reach. 1:1 at bedside. Endorsement given to AM nurse
--- NOTE | 2017-04-04 07:25 | NUR ---
Start of Shift Armature Varnisher received report on 26 year old female admitted 04/01/17 for ETOH detoxification. Pt on a vegetarian diet, full code and NKA. PMH significant for seizures, last 12/2015, Bipolar, Depression and Anxiety. Pt currently on 1:1 staffing for pt safety. 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 Currently on a Valium taper with last CIWA of 14 recorded at 1999. Pt was administered Vistaril, Clonidine, and Baclofen PRN on the overnight stocker. Pt slept 8+ hours. Armature Varnisher encountered pt resting in bed with eyes closed. Respirations are even and unlabored with rise and fall of chest noted. Bed in low position, wheels locked, side rails up x2 and call light within reach.
[2017-04-04 08:26] VITALS: BP 107/77
[2017-04-04] MEDS: FOLIC ACID 1 MG TABLET PO SCH (08:38)
[2017-04-04] MEDS: BACLOFEN 20 MG TABLET PO SCH ×4 (08:38→21:08)
[2017-04-04] MEDS: busPIRone 10 MG TABLET PO SCH ×3 (08:38→17:00)
[2017-04-04] MEDS: DOCUSATE SODIUM 250 MG CAPSULE PO SCH (08:38)
[2017-04-04] MEDS: SERTRALINE HCL 50 MG TABLET PO SCH (08:39)
[2017-04-04] MEDS: THIAMINE HCL 100 MG TABLET PO SCH (08:39)
[2017-04-04] MEDS: DIAZEPAM 5 MG TABLET PO SCH ×3 (08:39→17:20)
[2017-04-04] MEDS: GABAPENTIN 300 MG CAPSULE PO SCH ×3 (08:39→17:20)
[2017-04-04] MEDS: MULTIVITAMINS,THERAPEUTIC TABLET PO SCH (08:39)
[2017-04-04] MEDS ORDERED: HYDROXYZINE PAMOATE 25 MG CAPSULE PO SCH (12:00)
[2017-04-04 12:30] VITALS: BP 128/96
[2017-04-04] MEDS: HYDROXYZINE PAMOATE 25 MG CAPSULE PO PRN ×2 (15:16→19:32)
--- NOTE | 2017-04-04 15:20 | NUR ---
PRN Vistaril Pt complains of anxiety and states, " you said I had a PRN for Vistaril? Can I get that please?" Account Review Specialist administered medication per MD order. Will continue to monitor, support and encourage according to plan of care.
--- NOTE | 2017-04-04 16:20 | NUR ---
PRN Re-assessment Pt is calm and has no complaints at this time. Will continue to monitor, support and encourage according to plan of care.
[2017-04-04 16:38] VITALS: BP 137/76
--- NOTE | 2017-04-04 17:33 | NUR ---
Refused Medication Pt stated, " I don't need any anything anti anxiety, I need mood stabilizers." Pt denies need for medication.
--- NOTE | 2017-04-04 18:59 | NUR ---
End of Shift Telephone Maintenance Mechanic provided report on 26 year old female admitted 04/01/17 for ETOH detoxification, with no further comments, questions or concerns voiced. Pt on a vegetarian diet, full code and NKA. PMH significant for seizures, last 12/2015, Bipolar, Depression and Anxiety. Pt currently on 1:1 staffing for pt safety. Pt had been drinking hand florist previous to admission. Currently on a Valium taper with last CIWA of 9 recorded at 1600. Pt was administered Vistaril, PRN on this shift. Pt has been calm and cooperative, A/O x4 and able to make needs known. Pt has a flat affect, can be somatic and dramatic, attention seeking. Bed in low position, wheels locked, side rails up x2 and call light within reach.
[2017-04-04] MEDS: IBUPROFEN 600 MG TABLET PO PRN (19:32)
--- NOTE | 2017-04-04 19:32 | NUR ---
PRN medication Motrin 600 mg PO administered at 193 for C/O body aches 6 out of 10. Effect pending Vistaril 50 mg PO given at 193 for C/O anxiety 10 out of 10. Effect pending.
--- NOTE | 2017-04-04 19:35 | NUR ---
Start of Shift Note Patient is a 26 year old female admitted to [facility] on 04-01-17 for alcohol dependence. 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 PAtient on 1;1 for safety. She has NKA is a full code and on a regular diet. She has pasy psychiatric history of Bipolar Disorder, anxiety and depression. She denies SI or HI. She has a seizure history with last reported seizure in December 2015. She continues on a 5 day Valium taper which she reports tolerating with great difficulty. At change of shift patient experiencing increased anxiety and stating she has such bad cravings and wants to leave and drink. PAtient was talked to at length and was able to stay in control. Denies SI or HI. States she is going to stay and try and focus on next steps in recovery. aware. Pt presents with anxiety 10 out of 10, tearfulness, fine tremors, Last CIWA-9. Pt remains on 1:1 for safety. All safety measures in place, Call light within reach. endorsement received from AM nurse.
[2017-04-04 20:00] VITALS: BP 114/74
--- NOTE | 2017-04-04 20:32 | NUR ---
Reassessment of patient Patient reassessed one hour after Motrin 600 mg PO PRN administered for pain. PAtient denies current pain Patient reassessed one hour after administration of Vistaril 50 mg PO given for anxiety. Patient resting comfortably in bed with no further complaints.
[2017-04-04] MEDS ORDERED: GABAPENTIN 400 MG CAPSULE PO SCH (21:00)
[2017-04-04] MEDS ORDERED: DIAZEPAM 10 MG TABLET PO SCH (21:00)
[2017-04-04] MEDS ORDERED: GABAPENTIN 300 MG CAPSULE PO SCH (21:00)
--- NOTE | 2017-04-04 21:00 | NUR ---
Baclofen 20 mg PO non administered due to new/changed order. Medication being too close to last dose administered. Dr Khan notified and order to non administer 2100 dose given.
[2017-04-05] VITALS: BP 92/63
--- NOTE | 2017-04-05 00:08 | NUR ---
CIWA deferred CIWA deferred at 0000. Patient asleep.
[2017-04-05 04:02] VITALS: BP 117/66
--- NOTE | 2017-04-05 06:53 | NUR ---
End of Shift Patient is a 26 year old female admitted on 04-01-17 for Alcohol dependence. 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 Patient placed on 1:1 for safety. Patient with past psychiatric history of Anxiety, Bipolar Disorder, and depression. Patient appeared dysthymic at start of shift contemplating discharge as she was reporting severe cravings to drink. She adamantly denies any SI or HI or thoughts of self harm. Patient has Past history of withdrawal seizures with last noted in December 2015. She is a full code, on a vegetarian diet, and has NKA. She is currently on a 5 day Valium taper. Patient received PRN Motrin 600 mg for bodyaches, as well as vistaril 50 mg PO for anxiety at 1932 with effect noted. Vital signs at 2000 BP 114/74, P 91, T 98.6, R 18, SPO@ 98% on RA. CIWA 13. Patient vital signs at 0000 BP 92/63, P 71, SPO@ 96% on RA, T 98.1, R 16. Vital signs at 0400 117/66, P 72, R 16, T 98.3, SPO2 98% on RA. CIWA 6. Patient slept a total of 8 hours. Input: 605 ml output: 1 void no BM. Safety measures in place, call light within reach. 1:1 at bedside. Endorsement given to AM nurse
--- NOTE | 2017-04-05 07:00 | NUR ---
Start of Shift Notes: Received patient in her room. Awake, alert and verbally responsive. Oriented x 4. Able to make needs known. Affect flat. Respirations even and unlabored. No SOB noted. Skin warm and dry to touch. Abdomen soft and non-distended with (+) BS in all 4 quadrants. No complains of N/V/D or constipation noted. Bladder non-distended. Voids independently. Denies dysuria. Ambulatory ad dior with steady gait. On 1:1 due to hx of S/I. Denies any S/I at this time. Patient is a 26 year old female admitted for ETOH dependence who was placed on a 5-day Valium taper as ordered. No adverse reactions noted. Has past medical hx of anxiety, bipolar disorder and depression. NKA. FULL CODE. Regular diet. On fall and seizure precautions. Educated patient on her current plan of care for the day and her medication regimen. Encouraged support, oral fluid intake and group participation to learn new skills to prevent relapse. Safety precautions in place. Call light kept in reach. Will continue to monitor during the day.
[2017-04-05 08:00] VITALS: BP 125/79
[2017-04-05] MEDS: BACLOFEN 20 MG TABLET PO SCH ×3 (08:49→20:13)
[2017-04-05] MEDS: DIAZEPAM 5 MG TABLET PO SCH ×3 (08:50→20:13)
[2017-04-05] MEDS: SERTRALINE HCL 50 MG TABLET PO SCH (08:50)
[2017-04-05] MEDS: THIAMINE HCL 100 MG TABLET PO SCH (08:50)
[2017-04-05] MEDS: FOLIC ACID 1 MG TABLET PO SCH (08:51)
[2017-04-05] MEDS: MULTIVITAMINS,THERAPEUTIC TABLET PO SCH (08:51)
[2017-04-05] MEDS: CLONIDINE HCL 0.1 MG TABLET PO SCH ×3 (08:51→20:13)
[2017-04-05] MEDS: HYDROXYZINE PAMOATE 25 MG CAPSULE PO PRN (08:55)
--- NOTE | 2017-04-05 08:55 | NUR ---
Vistaril 50 mg PO given: Patient noted with complain of anxiety. Pulse 83. Unable to be redirected with non-pharmacological interventions. Medicated patient with Vistaril 50 mg PO as ordered. Will monitor for effectiveness.
[2017-04-05] MEDS: busPIRone 10 MG TABLET PO SCH ×3 (08:58→17:00)
--- NOTE | 2017-04-05 08:58 | NUR ---
Buspar 15 mg PO not administered: Patient refused Buspar 15 mg PO. Educated patient on the risk and benefits but patient still refused. Will continue to monitor closely.
[2017-04-05] MEDS ORDERED: GABAPENTIN 300 MG CAPSULE PO SCH (09:00)
--- NOTE | 2017-04-05 09:55 | NUR ---
Re-assessment: Vistaril Per patient, PRN Vistaril 50 mg PO was effective in reducing anxiety. Patient went downstairs to smoke with 1:1.
[2017-04-05 12:00] VITALS: BP 97/62
[2017-04-05] MEDS ORDERED: DIAZEPAM 5 MG TABLET PO ONE (12:15)
[2017-04-05] MEDS: IBUPROFEN 600 MG TABLET PO PRN (12:42)
--- NOTE | 2017-04-05 12:42 | NUR ---
Valium 5 mg PO x 1 given/Motrin 600 mg PO given: KARINA 6. New order obtained from Dr. Khan to have x 1 dose of Valium 5 mg PO as ordered. Also noted with complain of generalized muscle aches of 5/10. Medicated patient with Motrin 600 mg PO as ordered. Will monitor for effectiveness.
--- NOTE | 2017-04-05 13:10 | NUR ---
Buspar 15 mg PO not administered: Patient refused Buspar 15 mg PO at 1300. Educated patient on the risk and benefits but patient still refused. Will continue to monitor closely. Will notify MD Jerome.
--- NOTE | 2017-04-05 13:42 | NUR ---
Re-assessment: Valium and Motrin CIWA 3. Less anxiety and agitation noted. PRN Valium and Motrin were effective in reducing pain and anxiety. PL 2/10.
[2017-04-05] MEDS: GABAPENTIN 400 MG CAPSULE PO SCH ×2 (14:21→20:13)
[2017-04-05 16:00] VITALS: BP 138/67
[2017-04-05] MEDS: TOPIRAMATE 25 MG TABLET PO SCH ×2 (16:56→20:13)
[2017-04-05] MEDS: KETOROLAC TROMETHAMINE 30 MG INJ IM PRN (17:00)
--- NOTE | 2017-04-05 17:00 | NUR ---
Toradol 30 mg IM given: Patient noted with complain of 7/10 generalized pain. Unable to be relieved with non-pharmacological interventions. Medicated patient with Toradol 30 mg IM as ordered. Will monitor for effectiveness.
--- NOTE | 2017-04-05 17:05 | NUR ---
Buspar 15 mg PO not administered: Patient refused Buspar 15 mg PO at 1300. Educated patient on the risk and benefits but patient still refused. Will continue to monitor closely. Dr. Jerome made aware with NNO. To continue to monitor and encourage the patient. Addendum: 04/05/17 at 1705 by BARRON BEATTY LVN Buspar at 1700 was not administered. Not 1300 dose.
--- NOTE | 2017-04-05 17:30 | NUR ---
Re-assessment: Toradol Per patient, PRN Toradol was effective in reducing patient's myalgia. PL 10/15.
--- NOTE | 2017-04-05 19:11 | NUR ---
End of Shift Notes: Patient continues to be on 5-day Valium taper to manage withdrawal symptoms related to ETOH. Tolerating taper well. One extra dose of Valium 5 mg PO was given at 1242 per MD orders. VS monitored closely. No significant abnormalities noted. WIthdrawal symptoms were closely monitored. Initial CIWA 11, patient presented with anxiety, agitation, sweats, and body aches. Non-compliant with Buspar. Refused to take Buspar during the shift. Notified Dr. Jerome with NNO noted. Denies S/I or H/I at this time. Continues to be on 1:1 for safety. Medicated patient with Vistaril 50 mg PO at 0855 for anxiety and Motrin at 1242 for headache and generalized body aches with help afte 1 hour. At 1700, patient was medicated with Toradol 30 mg IM as ordered for 7/10 generalized muscle aches with help after 30 minutes. Last CIWA 3. Tends to seek more meds despite education regarding her medication regimen. Encouraged to attend group. Able to participate in group and activities. Oral fluids encouraged. All needs met and attended. Will continue to monitor closely.
--- NOTE | 2017-04-05 19:12 | NUR ---
Start of shift note Received report from day shift nurse. Pt is a 26 yo female, A+Ox4, presenting to [facility] for ETOH dependence. Pt has NKA, is on Full code status, and on Vegetarian diet. Pt is on Fall and Seizure precautions. Pt has HX of Anxiety, Depression, and Bipolar. Pt is on 5 day Valium taper, tolerated well. No s/s of ASE/distress noted at this time. Respirations even and unlabored. Will continue to monitor.
[2017-04-05] MEDS: ACETAMINOPHEN 325 MG TABLET PO PRN (20:13)
--- NOTE | 2017-04-05 20:13 | NUR ---
PRN Tylenol Pt c/o headache and requested for PRN Tylenol. Medication given and tolerated well. Will reassess within 1 HR. Will continue to monitor.
[2017-04-05 20:24] VITALS: BP 111/71
--- NOTE | 2017-04-05 21:10 | NUR ---
PRN Tylenol Reassessment Medication effective. Pt is resting well in bed. No s/s of ASE/distress noted at this time. Respirations even and unlabored. Will continue to monitor.
[2017-04-06 00:16] VITALS: BP 107/70
[2017-04-06 04:14] VITALS: BP 104/68
--- NOTE | 2017-04-06 06:55 | NUR ---
End of shift note Pt is a 26 yo female, A+Ox4, presenting to [facility] for ETOH dependence. Pt has NKA, is on Full code status, and on Vegetarian diet. Pt is on Fall and Seizure precautions. Pt has HX of Anxiety, Depression, and Bipolar. Pt is on 5 day Valium taper, tolerated well. Pt was given PRN Tylenol @2012. Pt slept for a total of 9 HRS. Last CIWA: 3 @0400. No s/s of ASE/distress noted at this time. Respirations even and unlabored. Will endorse to day shift nurse.
[2017-04-06 08:00] VITALS: BP 104/64
--- NOTE | 2017-04-06 08:05 | NUR ---
START OF SHIFT: RECEIVED PT A/O X 4. SHE PRESENTS WITH ANXIOUS MOOD AND AFFECT SHE REPORTS SHE FEELS NAUSEA. SHE REPORTS ANXIETY AND RESTLESSNESS. PT STATES SHE SLEPT OK. SHE REPORTS AN OK APPETITE. 1:1 IN PROGRESS FOR SAFETY. SHE DENIES S/I AND H/I. VALIUM TAPER IN PROGRESS TO MANAGE S/S OF W/D. WILL CONTINUE TO MONITOR AND PROVIDE SUPPORT.
[2017-04-06] MEDS: ONDANSETRON 4 MG/2 ML VIAL IM PRN (09:01)
--- NOTE | 2017-04-06 09:03 | NUR ---
PRN ZOFRAN Pt had 1 bout of emesis and nausea, PRN Zofran IM administered as ordered, primary nurse to reassess.
[2017-04-06] MEDS: SERTRALINE HCL 50 MG TABLET PO SCH (09:29)
[2017-04-06] MEDS: FOLIC ACID 1 MG TABLET PO SCH (09:29)
[2017-04-06] MEDS: TOPIRAMATE 25 MG TABLET PO SCH ×2 (09:30→20:36)
[2017-04-06] MEDS: MULTIVITAMINS,THERAPEUTIC TABLET PO SCH (09:30)
[2017-04-06] MEDS: CLONIDINE HCL 0.1 MG TABLET PO SCH ×3 (09:30→20:36)
[2017-04-06] MEDS: busPIRone 10 MG TABLET PO SCH ×3 (09:31→17:00)
[2017-04-06] MEDS: THIAMINE HCL 100 MG TABLET PO SCH (09:31)
[2017-04-06] MEDS: BACLOFEN 20 MG TABLET PO SCH ×3 (09:31→20:36)
[2017-04-06] MEDS: GABAPENTIN 400 MG CAPSULE PO SCH ×3 (09:31→20:35)
[2017-04-06] MEDS: DIAZEPAM 5 MG TABLET PO SCH ×2 (09:31→20:36)
--- NOTE | 2017-04-06 09:35 | NUR ---
ZOFRAN EFFECTIVE. PT DENIES N/V AT THIS TIME.
[2017-04-06 12:00] VITALS: BP 110/69
[2017-04-06] MEDS: HYDROXYZINE PAMOATE 25 MG CAPSULE PO PRN (15:43)
[2017-04-06 16:00] VITALS: BP 99/66
--- NOTE | 2017-04-06 18:52 | NUR ---
END OF SHIFT: PT CONTINUES ON VALIUM TAPER. LAST CIWA 4. SHE CONTINUES TO PRESENT WITH ANXIOUS MOOD AND LABILE AFFECT. SHE VOMITED THIS AM AND IM ZOFRAN PRN WAS GIVEN AND EFFECTIVE. PT IS ON 1:1 SHE ATTENDED GROUPS TODAY AND INTERACTS WITH PEERS. WILL PASS SHIFT REPORT TO ONCOMING NIGHT NURSE.
--- NOTE | 2017-04-06 19:50 | NUR ---
Start of Shift Note: Report received from day shift nurse. Pt is a 26 y/o female admitted on 04/01/17 for medically-supervised withdrawal from ETOH. Pt reports drinking 2-3 bottles of wine, 6 beers, and 2 bottles of hand carding doubler for the four days prior to admission; pt has been drinking on a daily basis for 2 months. Pt is on a 5-day Valium taper. Pt received with last CIWA=4, and PRN's Vistaril and Zofran IM were given during day shift. Pt is a full code, reports NKDA/NKFA, and is on a regular/vegetarian diet. PMHx: anxiety, depression, bipolar disorder. Pt received in room and reports anxiety, diaphoresis, and tremor. Bed is in low position and locked, side rails up x2, call light is within reach. Will continue to monitor.
[2017-04-06 20:00] VITALS: BP 101/64
[2017-04-06] MEDS: IBUPROFEN 600 MG TABLET PO PRN (20:35)
--- NOTE | 2017-04-06 20:35 | NUR ---
PRN Motrin: Patient complains of generalized body aches. Patient rates pain 5/10. Administered PRN Motrin as ordered.
--- NOTE | 2017-04-06 20:50 | NUR ---
Diversion Attempt/Room Search: Pt attempted to divert Valium during medication pass. Pt pulled a yellow Valium tablet out of medicine cup and attempted to distract nurse while taking other medications. Pt continued to hold the Valium tablet in her hand while waiting some time after taking the other pills. Nurse told pt that she was aware that the pt had the Valium hidden in her hand, and that she had to take the pill. During a subsequent room search, a yellow tablet was found in pt's notebook placed between folded sheets of notebook paper.
--- NOTE | 2017-04-06 21:35 | NUR ---
PRN Reassessment: Pt denies pain at this time. PRN Motrin effective.
[2017-04-07] VITALS: BP 97/63
--- NOTE | 2017-04-07 04:00 | NUR ---
Vitals Refused, CIWA Deferred: Pt refuses 04:00 V/S. Pt educated on risks and benefits but continued to refuse. CIWA is deferred for sleep. All safety precautions are in place. Will continue to monitor. Addendum: 04/07/17 at 0522 by ROBERTA RANGEL RN Amended: Links added.
--- NOTE | 2017-04-07 06:51 | NUR ---
End of Shift Note: Pt is a 26 y/o female admitted to [facility] on 04/01/17 for medically-supervised withdrawal from ETOH. Pt reported a PMHx of anxiety, depression, and bipolar disorder. Pt is a full code. Pt reports NKDA/NKFA. Pt is on a regular/vegetarian diet. 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 Pt continues on a 5-day Valium taper. Scheduled medication regime managed s/s of withdrawal this shift, in addition to PRN Motrin for pain. Last CIWA=2 at 00:00. Pt observed attempting to divert Valium this shift; after a subsequent room search, another Valium tablet was found in pt's personal belongings. Pt was placed on room restriction. Pt later requested another Valium dose to replace "the pill I cheeked'. V/S stable throughout shift. Total fluid intake this shift: 855 ml; output: urine x 1 and BM x 0. Pt is currently in bed and slept 7 hours this shift. All needs have been attended and met. Pt endorsed to day shift nurse.
--- NOTE | 2017-04-07 07:45 | NUR ---
START OF SHIFT: RECEIVED PT A/O X 4. SHE PRESENTS WITH LABILE AFFECT AND BLUNTED MOOD. SHE REPORTS ANXIETY BUT AFFECT IS INCONGRUENT. 1;1 SITTER AT BEDSIDE. VALIUM TAPER IN PROGRESS. CIWA 2. SHE REPORTS SHE SLEPT WELL. ENCOURAGED INCREASED FLUIDS AND GROUP ATTENDANCE. WILL CONTINUE TO MONITOR AND OFFER SUPPORT.
[2017-04-07 08:00] VITALS: BP 104/62
[2017-04-07] MEDS: GABAPENTIN 400 MG CAPSULE PO SCH ×3 (08:33→21:08)
[2017-04-07] MEDS: TOPIRAMATE 25 MG TABLET PO SCH (08:33)
[2017-04-07] MEDS: IBUPROFEN 600 MG TABLET PO PRN ×2 (08:34→18:55)
[2017-04-07] MEDS: BACLOFEN 20 MG TABLET PO SCH ×3 (08:34→21:08)
[2017-04-07] MEDS: FOLIC ACID 1 MG TABLET PO SCH (08:34)
[2017-04-07] MEDS: CLONIDINE HCL 0.1 MG TABLET PO SCH ×3 (08:34→21:08)
[2017-04-07] MEDS: THIAMINE HCL 100 MG TABLET PO SCH (08:34)
[2017-04-07] MEDS: SERTRALINE HCL 50 MG TABLET PO SCH (08:35)
[2017-04-07] MEDS: MULTIVITAMINS,THERAPEUTIC TABLET PO SCH (08:35)
--- NOTE | 2017-04-07 08:35 | NUR ---
PT REPORTS GENERALIZED BODY ACHES. PRN MOTRIN GIVEN. WILL MONITOR EFFECTIVENESS OF PRN MEDS.
[2017-04-07] MEDS: busPIRone 10 MG TABLET PO SCH ×3 (08:39→17:00)
[2017-04-07] MEDS ORDERED: DIAZEPAM 5 MG TABLET PO SCH (09:00)
--- NOTE | 2017-04-07 09:35 | NUR ---
PT STATES THE MOTRIN WAS EFFECTIVE AND HER BODY ACHES HAVE LESSENED.
[2017-04-07 12:00] VITALS: BP 93/61
[2017-04-07] MEDS: HYDROXYZINE PAMOATE 25 MG CAPSULE PO PRN ×2 (13:00→18:55)
[2017-04-07] MEDS: LAMOTRIGINE 25 MG TABLET PO SCH (15:03)
[2017-04-07] MEDS ORDERED: IBUP-1955 PO (15:34)
[2017-04-07] MEDS ORDERED: LAMO25TA5 PO (15:34)
[2017-04-07] MEDS ORDERED: CLON0.1T14 PO (15:34)
[2017-04-07] MEDS ORDERED: GABA-536 PO (15:34)
[2017-04-07] MEDS ORDERED: HYDR-3895 PO (15:34)
[2017-04-07] MEDS ORDERED: SERT50TA12 PO (15:34)
[2017-04-07] MEDS ORDERED: BUSP10TA3 PO (15:34)
[2017-04-07] MEDS ORDERED: BACL20TA PO (15:34)
[2017-04-07] MEDS ORDERED: DIPH50CA37 PO (15:34)
[2017-04-07 16:00] VITALS: BP 95/62
--- NOTE | 2017-04-07 18:34 | NUR ---
END OF SHIFT: PT COMPLETED VALIUM TAPER. SHE IS SCHEDULED FOR DISCHARGE TOMORROW. 1:1 SITTER AT BEDSIDE. PT HAD SOME BEHAVIORAL ISSUES TODAY WHICH INCLUDED VOMITING AND SMELLING THE HAND MUSIC COMPOSITION TEACHER DOWNSTAIRS. MULTIDISCIPLINARY STAFF INTERVENED. LAST CIWA 1. WILL PASS SHIFT REPORT TO ONCOMING NIGHT NURSE.
--- NOTE | 2017-04-07 19:00 | NUR ---
Start of Shift Patient Received. Patient is in activities room participating in group activities. Patient is a 26 year old female admitted on 04/01/17 for ETOH Dependence under the care of Dr. Wilson. Patient verbalizes no known allergies, wishes to be to be full code, following a regular vegetarian diet, placed on fall and seizure precautions. Past medical history noted as Anxiety, Depression, Bipolar, and history of seizure with last one noted in December 2015. Patient has completed a 5 day valium taper and is set for discharge tomorrow 04/08/17. Patient was placed on a 1:1 for increased behavior issues. Patient noted with episodes of cheeking medications. Last noted CIWA 1. All needs attended to promptly. Will continue plan of care as ordered.
[2017-04-07 21:01] VITALS: BP 128/75
[2017-04-07] MEDS: METHOCARBAMOL 750 MG TABLET PO PRN (21:08)
--- NOTE | 2017-04-07 21:10 | NUR ---
PRN Medication Administration Patient verbalizing increased pain 8/10 due to body aches. Offered Toradol injection but patient refused. Patient agreed to take PRN Robaxin with routine medications. All needs attended to promptly. Will continue to monitor.
--- NOTE | 2017-04-07 22:00 | NUR ---
PRN Medication Reassessment Patient able to verbalize PRN Robaxin was effective in minimizing body aches. No pain reported. PRN Robaxin noted to be effective. Will continue to monitor.
[2017-04-08 00:20] VITALS: BP 106/69
[2017-04-08 04:51] VITALS: BP 104/72
--- NOTE | 2017-04-08 07:04 | NUR ---
End of Shift Patient is noted in bed sleeping but easily aroused to verbal stimuli. Breathing even and non labored. No signs of pain or discomfort noted. Patient is a 26 year old female admitted on 04/01/17 for ETOH Dependence and received a 5 day Valium taper. Patient verbalizes no known allergies, wishes to be full code, placed on fall and seizure precautions. Past medical history of anxiety, depression, and bipolar, with history of seizure noted in december 2015. Patient was given PRN Robaxin for increased body aches. Discharge orders continue for today 04/08/17. All needs attended to promptly. Will endorse to continue plan of care as ordered.
--- NOTE | 2017-04-08 07:30 | NUR ---
START OF SHIFT Pt 26 y/o female admitted for etoh dependence. Pt received in room on bed with eyes closed resting, but easily arousable to name. Pt alert and oriented to name, place, and time. Perrla. Skin warm and dry to touch. Resipirations even and unlabored. It was reported that pt slept for 4.5 hours last night. Pt is scheduled to be discharged today. Bed on lowest position with side rails x2 up for safety. Call light within reach. No distress noted at this time.
[2017-04-08 09:00] VITALS: BP 103/69
[2017-04-08] MEDS: busPIRone 10 MG TABLET PO SCH ×2 (09:23→13:42)
[2017-04-08] MEDS: BACLOFEN 20 MG TABLET PO SCH ×2 (09:23→14:23)
[2017-04-08] MEDS: FOLIC ACID 1 MG TABLET PO SCH (09:23)
[2017-04-08] MEDS: CLONIDINE HCL 0.1 MG TABLET PO SCH ×2 (09:23→14:23)
[2017-04-08] MEDS: GABAPENTIN 400 MG CAPSULE PO SCH ×2 (09:23→14:23)
[2017-04-08] MEDS: THIAMINE HCL 100 MG TABLET PO SCH (09:23)
[2017-04-08] MEDS: MULTIVITAMINS,THERAPEUTIC TABLET PO SCH (09:23)
[2017-04-08] MEDS: LAMOTRIGINE 25 MG TABLET PO SCH (09:23)
[2017-04-08] MEDS: SERTRALINE HCL 50 MG TABLET PO SCH (09:24)
[2017-04-08] MEDS: HYDROXYZINE PAMOATE 25 MG CAPSULE PO PRN ×2 (09:30→14:23)
--- NOTE | 2017-04-08 09:30 | NUR ---
PRN Pt states feels anxious. Vistaril po prn per MD order given and tolerated well.
--- NOTE | 2017-04-08 10:30 | NUR ---
PRN EVAL Pt observed walking around unit. No distress noted at this time.
[2017-04-08 12:00] VITALS: BP 98/60
--- NOTE | 2017-04-08 13:49 | NUR ---
PRN pt states has generalized body pain 6/10. Toradol IM prn per MD order given and tolerated well.
[2017-04-08 14:23] VITALS: BP 103/63
--- NOTE | 2017-04-08 14:25 | NUR ---
PRN Pt states feels anxious. Vistaril po prn per MD order given and tolerated well.
--- NOTE | 2017-04-08 14:49 | NUR ---
PRN MAMADOU Pt observed walking around the unit. No distress noted at this time.
--- NOTE | 2017-04-08 15:25 | NUR ---
ALEXIS CEDILLO Pt observed in dining room sitting. No distress noted at this time.
--- NOTE | 2017-04-08 16:03 | NUR ---
DISCHARGE Pt discharged to [facility] via private transport. Pt alert and oriented to name, place, and time. Perrla. Skin warm and dry to touch. Respirations even and unlabored. No hand tremors noted. All medications, prescriptions, discharge papers, and belongings packed in pt bag. No belongings in cabinet or cassete noted. VS wnl. No distress noted at this time.
== END 2017-04-08 16:03 | disposition other institution (70) | DRG 895 ==
LOC: ER 02:26 → SRC 08:38
PROVIDERS: ADMIT Internal Medicine; ATTEND Internal Medicine
PROC: HZ2ZZZZ Detoxification Services for Substance Abuse Treatment (ICD-10-PCS; principal; 2017-04-01)
PROC: HZ41ZZZ Group Counseling for Substance Abuse Treatment, Behavioral (ICD-10-PCS; 2017-04-02)
DX: F10.230 Alcohol dependence with withdrawal, uncomplicated (principal); F31.60 Bipolar disorder, current episode mixed, unspecified; F13.10 Sedative, hypnotic or anxiolytic abuse, uncomplicated; F10.220 Alcohol dependence with intoxication, uncomplicated; Y90.9 Presence of alcohol in blood, level not specified; F17.210 Nicotine dependence, cigarettes, uncomplicated; Z79.899 Other long term (current) drug therapy
CPT/HCPCS: 36415; 70030-TC; 80307; 84703; 85025; 86580; 86592; 86705; 86803; 87340; 87806; A4663; G0480; G0480-TC; J1885; J2405; J3411; Q0162; Q0163